=== PATIENT | male | born 1990 | race African-American/Black ===

== ENCOUNTER 2018-07-01 03:23 | Emergency (ER) | payer SELFPAY ==
--- NOTE | 2018-07-01 03:57 | EDM.PDOC ---
ED HPI GENERAL MEDICAL PROBLEM - General Chief Complaint: ENT Problem Stated Complaint: TOOTHACHE Time Seen by Provider: 07/01/18 03:50 Source of Information: Reports: Patient History Limitations: Reports: No Limitations - History of Present Illness INITIAL COMMENTS - FREE TEXT/NARRATIVE: This is a 27-year-old male. For the last week or so he's been having left lower jaw pain. He states he went to see a dentist though he doesn't remember his name. He states the dentist office somewhere on [address] but I'm not aware of any dentist on [address]. When I asked him why the dentist didn't prescribe something for the infection he indicated the dentist told him he needed to come to the hospital. He denies any drainage from the tooth he is just having pain. He denies any fever or chills. There is been no facial swelling and no sore throat. Right Lower Tooth/Teeth Pain Score (Numeric/FACES): 8 - Related Data Allergies Allergy/AdvReac Type Severity Reaction Status Date / Time Penicillins Allergy Cannot Verified 07/01/18 03:30 Remember Home Meds: Home Meds Clindamycin HCl [Cleocin HCl] 300 mg PO TID #21 capsule 07/01/18 [Rx] Naproxen 500 mg PO BID PRN #16 tablet 07/01/18 [Rx] Past Medical History - Past Health History Medical/Surgical History: Denies Medical/Surgical History Social & Family History - Family History Family Medical History: Noncontributory - Tobacco Use Smoking Status *Q: Current Every Day Smoker Years of Tobacco use: 12 Packs/Tins Daily: 0.5 - Caffeine Use Caffeine Use: Reports: None - Recreational Drug Use Recreational Drug Use: No ED ROS ENT - Review of Systems Review Of Systems: See Below Constitutional: Denies: Fever, Chills HEENT: Reports: Other (As per history of present illness) Respiratory: Reports: No Symptoms Cardiovascular: Reports: No Symptoms Endocrine: Reports: No Symptoms GI/Abdominal: Reports: No Symptoms : Reports: No Symptoms Musculoskeletal: Reports: No Symptoms Skin: Reports: No Symptoms Neurological: Reports: No Symptoms Psychiatric: Reports: No Symptoms Hematologic/Lymphatic: Reports: No Symptoms ED EXAM, ENT - Physical Exam Exam: See Below Exam Limited By: No Limitations General Appearance: Alert, WD/WN, No Apparent Distress Eye Exam: Bilateral Eye: Normal Inspection Ears: Normal External Exam Nose: Normal Inspection Mouth/Throat: Normal Inspection, Normal Gums, Normal Oropharynx, Other (His teeth appear to be in fair repair, the right lower jaw very back molar looks like a wisdom tooth and there is maceration of the gum, no swelling of the gum is noted no area of drainage is noted.) Head: Normocephalic, Other (There is no noted facial swelling no lymphadenopathy angle of the jaws) Neck: Supple Respiratory/Chest: No Respiratory Distress, Lungs Clear, Normal Breath Sounds Cardiovascular: Regular Rate, Rhythm, No Murmur Back: Full Range of Motion Extremities: Normal Inspection, Normal Range of Motion Neurological: Alert, Oriented Psychiatric: Normal Affect, Normal Mood Skin: Warm, Dry Course - Vital Signs Last Recorded V/S: Last Vital Signs Temp 97.8 F 07/01/18 03:28 Pulse 60 07/01/18 03:28 Resp 18 07/01/18 03:28 BP 136/82 07/01/18 03:28 Pulse Ox 98 07/01/18 03:28 Departure - Departure Time of Disposition: 03:55 Disposition: Home, Self-Care 01 Condition: Fair Clinical Impression: Dental infection, Pain, dental - Discharge Information *PRESCRIPTION DRUG MONITORING PROGRAM REVIEWED*: Not Applicable *COPY OF PRESCRIPTION DRUG MONITORING REPORT IN PATIENT EFRA: Not Applicable Prescriptions: Clindamycin HCl [Cleocin HCl] 300 mg PO TID #21 capsule Naproxen 500 mg PO BID PRN #16 tablet PRN Reason: Pain Referrals: PCP,None [Primary Care Provider] - Additional Instructions: Call the dentist on Tuesday and let them know you are now on antibiotics and you need to follow up with the dentist for possible tooth extraction, take the naproxen as needed to help with the soreness and the pain, use either ice or heat to the cheek to help with the pain, be certain to chew your food on the left side of your mouth, return to the ER if needed
== END 2018-07-01 04:07 | disposition home or self-care (01) ==
LOC: JD.ED 03:23
DX: K04.7 Periapical abscess without sinus (principal); F17.210 Nicotine dependence, cigarettes, uncomplicated; Z88.0 Allergy status to penicillin
CPT/HCPCS: 99282; 99283